=== PATIENT | male | born 1980 | race Caucasian/White ===

== ENCOUNTER 2021-09-09 19:17 | Emergency (ER) | payer BC, OTHER ==
[2021-09-09 20:38] LABS: CHLORIDE,CL 105 mmol/L (98-107); SODIUM,NA 140 mmol/L (136-145)
[2021-09-09 20:39] LABS: ANION GAP 16.1 mmol/L (5-15)
== END 2021-09-09 21:15 | disposition home or self-care (01) ==
LOC: VM.ED 19:17
DX: R42 Dizziness and giddiness (principal); R20.2 Paresthesia of skin; E66.9 Obesity, unspecified; Z68.35 Body mass index [BMI] 35.0-35.9, adult; Z72.0 Tobacco use; Z91.013 Allergy to seafood; Z79.899 Other long term (current) drug therapy; Z20.822 Contact with and (suspected) exposure to COVID-19
CPT/HCPCS: 36415; 80053; 83735; 84443; 84484; 85025; 85379; 93005; 99284-25; U0002

== ENCOUNTER 2023-07-04 13:53 | Emergency (ER) | payer OTHER ==
[2023-07-04] MEDS ORDERED: Lidocaine 1% 10 ML MDV INJECT ONE (14:04)
== END 2023-07-04 14:30 | disposition home or self-care (01) ==
LOC: VM.ED 13:53
DX: S01.01XA Laceration without foreign body of scalp, initial encounter (principal); E66.9 Obesity, unspecified; F17.210 Nicotine dependence, cigarettes, uncomplicated; Z91.013 Allergy to seafood; Z79.899 Other long term (current) drug therapy; W26.8XXA Contact with other sharp object(s), not elsewhere classified, initial encounter
CPT/HCPCS: 12002; 99283; J3490

== ENCOUNTER 2025-03-19 16:13 | Emergency (ER) | payer OTHER ==
[2025-03-19] MEDS: Lidocaine 1% with EPINEPHrine 1:100,000 20 ML MDV INFILT PRN (16:48)
== END 2025-03-19 16:46 | disposition home or self-care (01) ==
LOC: VM.ED 16:13
DX: S51.812A Laceration without foreign body of left forearm, initial encounter (principal); Z91.013 Allergy to seafood; Z79.899 Other long term (current) drug therapy; W25.XXXA Contact with sharp glass, initial encounter
CPT/HCPCS: 12001; 99282; J2004